=== PATIENT | female | born 1955 | race Caucasian/White ===

== ENCOUNTER 2021-10-26 09:14 | Emergency (ER) | payer SELFPAY ==
[2021-10-26] MEDS ORDERED: AMOX TR-K CLV1 EAC4 PO (10:15)
[2021-10-26 10:38] LABS: HEMOGLOBIN 14.1 gm/dl (12.3-15.3); RED BLOOD COUNT 4.65 M/UL (4.00-5.10); WHITE BLOOD COUNT 8.3 K/UL (4.5-11.0)
[2021-10-26 11:05] LABS: BUN/CREATININE RATIO 19 (0-10)
== END 2021-10-26 11:36 | disposition home or self-care (01) ==
LOC: ER1 09:14
PROVIDERS: Nurse Practitioner
DX: S41.151A Open bite of right upper arm, initial encounter (principal); S21.259A Open bite of unspecified back wall of thorax without penetration into thoracic cavity, initial encounter; E11.9 Type 2 diabetes mellitus without complications; I10 Essential (primary) hypertension; J45.909 Unspecified asthma, uncomplicated; Y92.009 Unspecified place in unspecified non-institutional (private) residence as the place of occurrence of the external cause; W54.0XXA Bitten by dog, initial encounter
CPT/HCPCS: 12002; 36600; 71045; 73060; 80053; 82803; 85025; 85379; 90715; 96374; 99283; J0696